=== PATIENT | female | born 1950 | race Caucasian/White ===

== ENCOUNTER 2024-06-16 18:38 | Outpatient (REF) | payer MEDICARE, SELFPAY ==
[2024-06-16 19:54] LABS: Abs Immature Grans 0.02 10^3/uL (0.0-0.06); Absolute Basophil Count 0.04 10^3/uL (0.0-0.2); Absolute Eosinophil Count 0.15 10^3/uL (0.0-0.7); Absolute Lymphocyte Count 2.07 10^3/uL (1.2-3.4); Absolute Monocyte Count 0.84 10^3/uL (0.1-0.8); Absolute Neutrophil Count 2.38 10^3/uL (1.2-6.7); Basophils % 0.7 %; Eosinophils % 2.7 %; HCT 27.5 % (36.0-46.0); HGB 8.8 g/dL (11.2-15.7); Immature Grans % 0.4 %; Lymphocytes % 37.6 %; MCV 91 fL (80-95); MPV 10.9 fL (8.0-11.0); Monocytes % 15.3 %; Neutrophils % 43.3 %; RBC 3.03 10^6/uL (3.93-5.22); RDW 17.7 % (11.7-14.6); RDW-SD 59.1 fL
[2024-06-16 20:09] LABS: BUN 12 mg/dL (7-18); Calcium 9.1 mg/dL (8.5-10.1); Chloride 103 mmol/L (98-107); Glucose 117 mg/dL (74-106); Potassium 5.7 mmol/L (3.5-5.1); Sodium 136 mmol/L (136-145)
[2024-06-16 20:23] LABS: Diff Comment RBC Morph Reviewed; Hypochromasia 1+
[2024-06-16 20:24] LABS: Platelet Count 592 10^3/uL (130-400)
[2024-06-16 20:27] LABS: CREATININE 1.3 mg/dL (0.55-1.02); Estimated GFR 42.62 (mL/min/1.73m2)
== END 2024-06-16 18:39 | disposition home or self-care (01) ==
LOC: LBN 18:38
PROVIDERS: Visit Provider Family Medicine
DX: E11.9 Type 2 diabetes mellitus without complications (principal); N17.9 Acute kidney failure, unspecified
CPT/HCPCS: 80048; 85025